=== PATIENT | female | born 1935 | race Two or more races ===

== ENCOUNTER 2021-08-06 09:54 | Inpatient (IN) | payer OTHER ==
[~2021-08-06] VITALS: Ht 160 cm; Wt 63.5 kg
[~2021-08-06 09:54] MED LIST: ASA81 MG; AVAPRO75 MG; CAPOTEN100 MG; CARDURA XL4 MG; CELEBREX100 MG PO; GABAPENTIN100 MG; HYDROCHLOROTHIA25 MG; LIPITOR40 MG; METFORMIN HCL500 MG; SYNTHROID50 MCG; VERAPAMIL HCL180 M1
== END 2021-09-09 21:53 | disposition expired ==
LOC: ER 09:54 → ICU-2 17:10 → ICU 08-09 16:59
PROVIDERS: ADMIT Internal Medicine; ATTEND Internal Medicine
PROC: 4A12X4Z Monitoring of Cardiac Electrical Activity, External Approach (ICD-10-PCS; 2021-08-06)
PROC: 4A033R1 Measurement of Arterial Saturation, Peripheral, Percutaneous Approach (ICD-10-PCS; 2021-08-06)
PROC: 02HV33Z Insertion of Infusion Device into Superior Vena Cava, Percutaneous Approach (ICD-10-PCS; principal; 2021-08-09)
PROC: 30233N1 Transfusion of Nonautologous Red Blood Cells into Peripheral Vein, Percutaneous Approach (ICD-10-PCS; 2021-08-11)
PROC: 3E0F7SF Introduction of Other Gas into Respiratory Tract, Via Natural or Artificial Opening (ICD-10-PCS; 2021-08-13)
PROC: 0W9F30Z Drainage of Abdominal Wall with Drainage Device, Percutaneous Approach (ICD-10-PCS; 2021-08-26)
PROC: B24BZZZ Ultrasonography of Heart with Aorta (ICD-10-PCS; 2021-09-08)
PROC: 5A09457 Assistance with Respiratory Ventilation, 24-96 Consecutive Hours, Continuous Positive Airway Pressure (ICD-10-PCS; 2021-09-08)
DX: I21.4 Non-ST elevation (NSTEMI) myocardial infarction (principal); J18.9 Pneumonia, unspecified organism; R65.20 Severe sepsis without septic shock; A41.9 Sepsis, unspecified organism; I16.9 Hypertensive crisis, unspecified; J45.901 Unspecified asthma with (acute) exacerbation; K92.1 Melena; N17.8 Other acute kidney failure; E87.1 Hypo-osmolality and hyponatremia; E03.8 Other specified hypothyroidism; I10 Essential (primary) hypertension; Z20.822 Contact with and (suspected) exposure to COVID-19; D64.9 Anemia, unspecified; R09.02 Hypoxemia; E13.9 Other specified diabetes mellitus without complications; K52.9 Noninfective gastroenteritis and colitis, unspecified; Z66 Do not resuscitate; Z53.29 Procedure and treatment not carried out because of patient's decision for other reasons; I48.91 Unspecified atrial fibrillation